=== PATIENT | female | born 1980 | race Caucasian/White ===

== ENCOUNTER 2020-01-07 23:00 | Emergency (ER) | payer BC ==
[~2020-01-07] VITALS: Ht 152.4 cm; Wt 61.0 kg
--- NOTE | 2020-01-08 01:24 | RAD ---
STUDY: CT chest without contrast INDICATION: Chest wall trauma. COMPARISON: None. TECHNIQUE: Helical CT imaging of the chest performed without the use of intravenous contrast. Sagittal and coronal reformats were obtained. One or more of the following individualized dose reduction techniques were utilized for this examination: 1. Automated exposure control 2. Adjustment of the mA and/or kV according to patient size 3. Use of iterative reconstruction technique. FINDINGS: Vasculature: Nonaneurysmal aorta. No evidence for aortic injury. Normal main pulmonary artery caliber. Mediastinum/tae: Several calcified granulomas. No retrosternal hematoma or pericardial effusion. No pneumomediastinum. No lymphadenopathy. Lungs: No pneumothorax or pleural effusion. No lung contusion. Mild paraseptal cystic change at the lung apices. No suspicious lung nodule based on size. The central airways are patent. Neck/axilla/chest wall: Unremarkable thyroid and axilla. No large body wall hematoma. Bones: No acute abnormality of the visualized shoulder girdles. The sternum is intact. Acute, minimally displaced fracture of the anterior right third rib, image 28 series 2. No acute rib fracture seen elsewhere. No acute osseous abnormality seen throughout the imaged spine. Upper abdomen: Splenic granuloma. Hypoattenuating focus within the upper aspect of the right hepatic lobe, image 52 series 2, most compatible with a benign finding such as a cyst given patient age. No dedicated follow-up is needed and less otherwise indicated based off patient history. IMPRESSION: 1. Minimally displaced fracture of the anterior right third rib. No associated pneumothorax or lung injury. No acute abnormality seen elsewhere throughout the chest. 2. Chronic/incidental findings detailed in the body the report. Electronically signed by: AUGUSTINA RODRIGUEZ MD (01/08/2020 1:21 AM) [id number]
[2020-01-08] MEDS ORDERED: OXYC1TAB15 PO (01:34)
[2020-01-08] MEDS ORDERED: NAPR-682 PO (01:34)
--- NOTE | 2020-01-08 01:34 | PHYS DOC ---
Past Medical History Past Medical History: No Pertinent History Past Surgical History: Additional Past Surgical Histo: DNC Smoking Status: Current Every Day Smoker Alcohol Use: Occasionally General Adult EDM: Chief Complaint: RIB PAIN HPI: HPI: Patient is a 39-year-old previously healthy female who presents to the emergency room complaining of chest pain. Patient was moving a heavy dresser when it fell on top of her. She states it was on top of her for about a minute before they were able to get it off. It landed on the right side of her chest. She states that initially she had a large amount of chest pain. She states that it has improved since she has arrived. She initially felt a clicking feeling in the front and back of her chest at the top but no longer has this feeling. She denies any shortness of breath. She does still have some soreness that is worse with movement. Review of Systems: Review of Systems: General: Denies fever, chills, sweats, fatigue Eyes: Denies drainage, blurred vision, eye redness HENT: Denies rhinorrhea, sore throat, earache Respiratory: Denies cough, shortness of breath, wheezing Cardiac: Denies edema, palpitations. Reports chest pain GI: Denies abdominal pain, Nausea, vomiting MSK: Denies back pain, neck pain Skin: Denies rash, jaundice Neuro: Denies headache, dizziness Psychiatric: Denies SI/HI Heart Score: Risk Factors: Risk Factors: DM, Current or recent (<one month) smoker, HTN, HLP, family history of CAD, obesity. Risk Scores: Score 0 - 3: 2.5% MACE over next 6 weeks - Discharge Home Score 4 - 6: 20.3% MACE over next 6 weeks - Admit for Clinical Observation Score 7 - 10: 72.7% MACE over next 6 weeks - Early Invasive Strategies Allergies: Allergies: Allergies Coded Allergies Type Severity Reaction Last Updated Verified No Known Drug Allergies 01/07/20 No Physical Exam: PE: General: Awake, alert, NAD. Well Nourished, well hydrated. Cooperative HEENT: Atraumatic, EOMI, PERRL, airway patent, moist oral mucosa Neck: Supple, trachea midline Respiratory: CTA bilaterally, normal effort, no wheezing/crackles, right upper chest wall tenderness CV: RRR, no murmur, cap refill <2 GI: Soft, nondistended, nontender, no masses MSK: No obvious deformities Skin: Warm, dry, intact Neuro: A&O x3, speech NL, sensory and motor grossly intact, no focal deficits Psych: Normal affect, normal mood, not suicidal or homicidal Current Patient Data: Labs: Laboratory Tests Test 01/07/20 23:23 POC Urine HCG, Qualitative Hcg negative (Negative) Vital Signs: Vital Signs Date Time Temp Pulse Resp B/P (MAP) Pulse Ox O2 Delivery O2 Flow Rate FiO2 01/07/20 23:22 98.4 77 24 130/72 (91) 97 Room Air 98.4 EKG: EKG: [] Radiology/Procedures: Radiology/Procedures: [] Course & Med Decision Making: Course & Med Decision Making Pertinent Labs and Imaging studies reviewed. (See chart for details) Patient is 39-year-old female presents to the emergency room complaining of right-sided chest pain after a dresser landed on her. Given the trauma and sig nificant pain she had afterwards we will do a CT chest without contrast to evaluate for rib fractures. CT does show a single rib fracture. Patient does not have any hypoxia at this time. We will do incentive spirometry with her. We will discharge her home on Anaprox and Percocet. We have discussed the signs and symptoms of pneumonia. Patient's test results and vitals while in the ED were fully reviewed and discussed with the patient. Patient is stable and at this time does not need admission to the hospital. We have discussed strict return precautions and the importance of following up with their Primary Care Physician. Patient stated understanding and was given an opportunity to ask any questions. Patient is in agreement with plan. Madelineon Disclaimer: Hollie Disclaimer: This electronic medical record was generated, in whole or in part, using a voice recognition dictation system. Departure Departure Impression: Primary Impression: Rib fracture Disposition: HOME, SELF-CARE Condition: STABLE Referrals: NIKKY GRAY MD (PCP) Patient Instructions: Rib Fracture, [id number] Scripts Naproxen Sodium (ANAPROX DS) 550 Mg Tablet 1 TAB PO BID for 15 Days, #30 TAB 0 Refills Prov: JAMEY BALDERRAMA MD 01/08/20 Oxycodone/Apap 5-325 (PERCOCET 5-325 MG TABLET ) 1 Each Tablet 1 TAB PO PRN Q6HRS PRN for PAIN, #7 TAB 0 Refills Prov: JAMEY BALDERRAMA MD 01/08/20 Justicifation of Admission Dx: Justifications for Admission: Justification of Admission Dx: N/A JAMEY BALDERRAMA MD Jan 08, 2020 01:34
[2020-01-08 01:59] VITALS: BP 131/80
== END 2020-01-08 02:00 | disposition home or self-care (01) ==
LOC: ER 23:00
DX: S22.31XA Fracture of one rib, right side, initial encounter for closed fracture (principal); R07.89 Other chest pain; F17.200 Nicotine dependence, unspecified, uncomplicated; Z98.890 Other specified postprocedural states; W18.39XA Other fall on same level, initial encounter; Y93.89 Activity, other specified; Y92.89 Other specified places as the place of occurrence of the external cause; Y99.8 Other external cause status
CPT/HCPCS: 71250; 81025; 99284